=== PATIENT | female | born 1985 | race Caucasian/White ===

== ENCOUNTER 2017-07-16 04:28 | Outpatient (CLI) | payer MEDICAID ==
[2017-07-16 07:06] LABS: ADD MAN DIFF? NO
[2017-07-16 07:12] LABS: BASOPHILS % 0.1 % (0.0-2.0); EOSINOPHILS # 0.1 10^3/ul (0.0-0.5); EOSINOPHILS % 1.2 % (0.0-7.0); HEMATOCRIT 35.3 % (37.0-47.0); HEMOGLOBIN 11.8 g/dl (12.0-16.0); LYMPHOCYTES % 20.4 % (15.0-51.0); MEAN CORPUSCULAR HEMOGLOBIN 24.7 pg (29.0-33.0); MEAN CORPUSCULAR HGB CONC 33.4 g/dl (32.0-37.0); MEAN CORPUSCULAR VOLUME 73.8 fl (82.0-101.0); MEAN PLATELET VOLUME 9.9 fl (7.4-10.4); MONOCYTE # 0.6 10^3/ul (0.3-0.9); NEUTROPHIL # 7.2 10^3/ul (1.6-7.5); NEUTROPHILS % 71.9 % (39.0-77.0); PLATELET COUNT 293 10^3/UL (140-415); RED BLOOD COUNT 4.78 10^6/ul (4.20-5.40); RED CELL DISTRIBUTION WIDTH 14.8 % (11.5-14.5)
[2017-07-16 07:18] LABS: ADD UMIC NO; UR ASCORBIC ACID NEGATIVE (NEGATIVE); UR BILIRUBIN (Dip) NEGATIVE (NEGATIVE); UR BLOOD (Dip) NEGATIVE (NEGATIVE); UR CLARITY CLEAR (CLEAR); UR COLOR STRAW (YELLOW); UR GLUCOSE (Dip) NEGATIVE (NEGATIVE); UR KETONES (Dip) NEGATIVE (NEGATIVE); UR LEUKOCYTE ESTERASE (Dip) NEGATIVE Leu/ul (NEGATIVE); UR NITRITE (Dip) NEGATIVE (NEGATIVE); UR SPECIFIC GRAVITY (Dip) 1.002 (1.003-1.030); UR TOTAL PROTEIN (Dip) NEGATIVE (NEGATIVE); UR UROBILINOGEN (Dip) NEGATIVE (NEGATIVE)
== END 2017-07-16 07:45 | disposition home or self-care (01) ==
LOC: OBT 04:28 → L-D 04:29 → OBT 07:45
DX: O62.9 Abnormality of forces of labor, unspecified (principal); Z3A.33 33 weeks gestation of pregnancy
CPT/HCPCS: 76817; 76818; 81003; 82962; 85025; 87086

== ENCOUNTER 2017-08-25 11:23 | Inpatient (IN) | payer MEDICAID ==
[2017-08-25 13:22] LABS: ADD MAN DIFF? NO
[2017-08-25 13:24] LABS: WHITE BLOOD COUNT 7.1 10^3/ul (4.8-10.8)
[2017-08-25 13:24] LABS: BASOPHILS % 0.3 % (0.0-2.0); EOSINOPHILS # 0.2 10^3/ul (0.0-0.5); EOSINOPHILS % 3.2 % (0.0-7.0); HEMATOCRIT 37.1 % (37.0-47.0); HEMOGLOBIN 12.5 g/dl (12.0-16.0); LYMPHOCYTES # 1.6 10^3/ul (0.8-2.9); LYMPHOCYTES % 22.7 % (15.0-51.0); MEAN CORPUSCULAR HEMOGLOBIN 24.8 pg (29.0-33.0); MEAN CORPUSCULAR HGB CONC 33.7 g/dl (32.0-37.0); MEAN CORPUSCULAR VOLUME 73.6 fl (82.0-101.0); MEAN PLATELET VOLUME 9.9 fl (7.4-10.4); MONOCYTE # 0.5 10^3/ul (0.3-0.9); MONOCYTES % 7.1 % (0.0-11.0); NEUTROPHIL # 4.7 10^3/ul (1.6-7.5); NEUTROPHILS % 66.1 % (39.0-77.0); PLATELET COUNT 324 10^3/UL (140-415); RED BLOOD COUNT 5.04 10^6/ul (4.20-5.40); RED CELL DISTRIBUTION WIDTH 16.3 % (11.5-14.5)
[2017-08-25 13:27] LABS: INR 0.91; PARTIAL THROMBOPLASTIN TIME 28.3 Sec (25.0-35.0); PROTIME 12.3 Sec (11.9-14.9)
[2017-08-25] MEDS: LACTATED RINGER'S 500 ML IV (13:43)
[2017-08-25 13:49] LABS: GLUCOSE 91 mg/dl (70-220)
[2017-08-25] MEDS: OXYTOCIN 30 UNITS/LR 500 ML IV ×2 (13:53→17:46)
[2017-08-25] MEDS ORDERED: BUTORPHANOL 2 MG INJ IV (14:00)
[2017-08-25] MEDS ORDERED: MISOPROSTOL 200 MCG TAB PR ×2 (14:00→21:00)
[2017-08-25] MEDS ORDERED: CARBOPROST 250 MCG INJ IM ×2 (14:00→21:00)
[2017-08-25] MEDS ORDERED: OXYTOCIN 30 UNITS/LR 500 ML IV ×3 (14:00→21:00)
[2017-08-25] MEDS ORDERED: LIDOCAINE 1% (MPF) 30 ML INJ INJ (14:00)
[2017-08-25] MEDS ORDERED: METHYLERGONOVINE 0.2 MG INJ IM ×2 (14:00→21:00)
[2017-08-25 14:03] LABS: HEPATITIS B SURFACE ANTIGEN NEGATIVE (NEGATIVE)
[2017-08-25 15:36] LABS: RAPID PLASMA REAGIN NONREACTIVE (NR)
[2017-08-25] MEDS ORDERED: ACCU-CHEK XX (17:00)
[2017-08-25] MEDS: IBUPROFEN 600 MG TAB PO (19:48)
[2017-08-25] MEDS ORDERED: HYDROCODONE/APAP (5/325) TAB PO ×2 (21:00)
[2017-08-25] MEDS ORDERED: ZOLPIDEM 5 MG TAB PO (21:00)
[2017-08-25] MEDS ORDERED: DIBUCAINE 1% 30 GM OINT PR (21:00)
[2017-08-25] MEDS: LACTATED RINGER'S 1,000 ML IV* (22:25)
[2017-08-25] MEDS: MAGNESIUM HYDROXIDE 30ML CUP PO (22:25)
[2017-08-25] MEDS: SENNA/DOCUSATE NA (8.6MG/50MG) TAB PO (22:25)
[2017-08-25] MEDS: metFORMIN (XR) 500 MG TAB PO (22:25)
[2017-08-26] MEDS: LACTATED RINGER'S 1,000 ML IV* ×3 (04:46→20:46)
[2017-08-26] MEDS: IBUPROFEN 600 MG TAB PO ×4 (05:55→17:51)
[2017-08-26] MEDS: BENZOCAINE 20% 56 ML SPRAY TOP (05:56)
[2017-08-26] MEDS: WITCH HAZEL/GLYCERIN PAD PR (05:56)
[2017-08-26] MEDS: ACCU-CHEK XX ×4 (07:30→20:05)
[2017-08-26 08:23] LABS: ADD MAN DIFF? NO
[2017-08-26 08:27] LABS: BASOPHILS % 0.2 % (0.0-2.0); EOSINOPHILS # 0.1 10^3/ul (0.0-0.5); EOSINOPHILS % 1.1 % (0.0-7.0); HEMATOCRIT 36.7 % (37.0-47.0); HEMOGLOBIN 12.3 g/dl (12.0-16.0); LYMPHOCYTES # 2.1 10^3/ul (0.8-2.9); LYMPHOCYTES % 16.1 % (15.0-51.0); MEAN CORPUSCULAR HEMOGLOBIN 24.8 pg (29.0-33.0); MEAN CORPUSCULAR HGB CONC 33.5 g/dl (32.0-37.0); MEAN PLATELET VOLUME 9.6 fl (7.4-10.4); MONOCYTE # 0.7 10^3/ul (0.3-0.9); MONOCYTES % 5.7 % (0.0-11.0); NEUTROPHIL # 9.8 10^3/ul (1.6-7.5); NEUTROPHILS % 76.4 % (39.0-77.0); PLATELET COUNT 304 10^3/UL (140-415); RED BLOOD COUNT 4.96 10^6/ul (4.20-5.40); RED CELL DISTRIBUTION WIDTH 16.1 % (11.5-14.5)
[2017-08-26 08:27] LABS: WHITE BLOOD COUNT 12.9 10^3/ul (4.8-10.8)
[2017-08-26] MEDS: metFORMIN (XR) 500 MG TAB PO ×2 (08:42→21:25)
[2017-08-26] MEDS: MAGNESIUM HYDROXIDE 30ML CUP PO ×2 (08:42→21:00)
[2017-08-26] MEDS: SENNA/DOCUSATE NA (8.6MG/50MG) TAB PO ×2 (08:42→21:25)
[2017-08-26] MEDS: LANOLIN 7 GM TUBE TOP (08:43)
[2017-08-27] MEDS: IBUPROFEN 600 MG TAB PO ×3 (00:38→11:51)
[2017-08-27] MEDS: LACTATED RINGER'S 1,000 ML IV* (04:46)
[2017-08-27] MEDS: ACCU-CHEK XX ×2 (07:30→10:05)
[2017-08-27] MEDS: metFORMIN (XR) 500 MG TAB PO (08:44)
[2017-08-27] MEDS: SENNA/DOCUSATE NA (8.6MG/50MG) TAB PO (08:44)
[2017-08-27] MEDS: DIPHTH/TET/ACEL PERTUSS (ADULT) 0.5 ML VIAL IM* (09:04)
[2017-08-27] MEDS: MEASLES,MUMPS,RUBELLA VACCINE INJ SC* (09:04)
[2017-08-27] MEDS: MAGNESIUM HYDROXIDE 30ML CUP PO (09:07)
[2017-08-27] MEDS: VARICELLA VACCINE LIVE/PF 1,350 UNIT/0.5 ML ML SC* (09:08)
== END 2017-08-27 14:45 | disposition home or self-care (01) | DRG 775 ==
LOC: L-D 11:23 → PP1 20:38
PROVIDERS: Obstetrics & Gynecology
PROC: 10E0XZZ Delivery of Products of Conception, External Approach (ICD-10-PCS; principal; 2017-08-25)
DX: O24.425 Gestational diabetes mellitus in childbirth, controlled by oral hypoglycemic drugs (principal); O76 Abnormality in fetal heart rate and rhythm complicating labor and delivery; O69.81X0 Labor and delivery complicated by cord around neck, without compression, not applicable or unspecified; Z37.0 Single live birth; Z3A.39 39 weeks gestation of pregnancy
CPT/HCPCS: 76815; 82947; 82962; 85025; 85610; 85730; 86592; 86850; 86900; 86901; 87340